=== PATIENT | male | born 1980 | race Two or more races ===

== ENCOUNTER 2017-03-01 21:59 | Emergency (ER) | payer SELFPAY ==
[~2017-03-01] VITALS: Ht 165.1 cm; Wt 54.4 kg
[2017-03-01 22:30] LABS: BASO % 1 % (0-3); EOS % 2 % (0-3); HEMATOCRIT 45.2 % (39.0-53.0); HEMOGLOBIN 15.2 g/dL (13.0-17.5); LYMPH # 2.1 x10^3/uL (1.0-4.8); LYMPH % 30 % (24-48); MEAN CORPUSCULAR HEMOGLOBIN 25 pg (25-35); MEAN CORPUSCULAR HGB CONC 34 g/dL (31-37); MEAN CORPUSCULAR VOLUME 76 fL (79-100); MONO % 9 % (0-9); NEUT % 59 % (31-73); PLATELET COUNT 200 x10^3/uL (140-400); RED BLOOD COUNT 5.97 x10^6/uL (4.30-5.70); RED CELL DISTRIBUTION WIDTH 13.3 % (11.5-14.5); WHITE BLOOD COUNT 6.9 x10^3/uL (4.0-11.0)
[2017-03-01 22:38] LABS: INR 1.1 (0.8-1.1); PROTHROMBIN TIME PATIENT 13.2 SEC (11.7-14.0)
[2017-03-01 22:42] LABS: CALCIUM 9.6 mg/dL (8.5-10.1); CREATININE 0.8 mg/dL (0.7-1.3); POTASSIUM 3.6 mmol/L (3.5-5.1)
[2017-03-01] MEDS ORDERED: fentaNYL PF VIAL 100 MCG/2 ML VIAL IV PRN (22:45)
[2017-03-01] MEDS ORDERED: IV NORMAL SALINE 1000ML BAG 1,000 ML IV SCH (22:45)
[2017-03-01 22:49] LABS: DIRECT BILIRUBIN 0.1 mg/dL (0.0-0.2); MAGNESIUM 1.8 mg/dL (1.8-2.4); TOTAL BILIRUBIN 0.5 mg/dL (0.2-1.0); TOTAL PROTEIN 7.8 g/dL (6.4-8.2)
--- NOTE | 2017-03-01 22:55 | PHYS DOC ---
Past Medical History Past Medical History: Unknown, Other Additional Past Medical Histor: skin bx Alcohol Use: None Drug Use: None Adult General Chief Complaint Chief Complaint: CHEST PAIN HPI HPI Patient is a 36 year old male brought to the ED from work by EMS with the complaint of chest and upper abdominal pain. The patient does not speak Romanian , the account specialist phone was used for the history. 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 He was feeling fine during the day. About 8:30 tonight he began to feel tightness across his chest and pain in his upper abdomen. He felt short of air. He was shaking all over. Coworkers laid him down on the cold floor and called 911. Paramedics report that the patient was laying on a cold floor when they picked him up, he was shaking but they thought maybe he was cold. Patient states he did feel feverish at home earlier today but does not have a thermometer. He denies vomiting or diarrhea. Denies cough. He's never had anything like this before. He's never had any abdominal surgery. The patient has no significant medical problems. He has had a chronic rash, he can't remember the name of it. He had a skin biopsy in 2008 and he has some sort of cream or ointment that he applies. Review of Systems Review of Systems Constitutional: As in history of present illness Eyes: Denies change in visual acuity, redness, or eye pain [] HENT: Denies nasal congestion or sore throat [] Respiratory: As in history of present illness Cardiovascular: As in history of present illness GI: As in history of present illness : Denies dysuria or hematuria [] Musculoskeletal: Denies back pain or joint pain [] Integument: Chronic rash as in history of present illness Neurologic: Denies headache, focal weakness or sensory changes [] Current Medications Current Medications Current Medications Medications (Trade) Dose Ordered Sig/Michael Start Time Stop Time Status Last Admin Dose Admin Fentanyl Citrate (Fentanyl 2ml Vial) 50 mcg PRN Q15MIN PRN 03/01/17 22:45 03/02/17 22:44 03/01/17 22:52 50 MCG Info (Do NOT chart on this entry -- for MONITORING) 1 each PRN DAILY PRN 03/01/17 23:15 03/03/17 23:14 Iohexol (Omnipaque 300 Mg/ml) 75 ml 1X ONCE 03/01/17 23:15 03/01/17 23:16 DC 03/01/17 23:05 75 ML Sodium Chloride 1,000 ml @ 1,000 mls/hr Q1H 03/01/17 22:45 03/01/17 23:44 DC 03/01/17 22:52 1,000 MLS/HR Allergies Allergies Allergies Coded Allergies Type Severity Reaction Last Updated Verified No Known Drug Allergies 03/01/17 No Physical Exam Physical Exam Constitutional: Thin male who appears very uncomfortable, rubbing his upper abdomen, moaning in pain, warm and dry, vitals stable. HENT: Normocephalic, atraumatic, bilateral external ears normal, nose normal. [ ] Eyes: conjunctiva normal, no discharge. [] Neck: Normal range of motion, no stridor. [] Cardiovascular:Heart rate regular rhythm, no murmur [] Lungs & Thorax: Bilateral breath sounds clear to auscultation [] Abdomen: Nondistended. Tender to palpation throughout the entire abdomen, patient pushes my hand away, no rebound or guarding, no masses Skin: Warm, dry, no erythema, appearing pretibial rash also present on the extensor surfaces of the elbows Extremities: No tenderness, no cyanosis, no clubbing, ROM intact, no edema. [] Neurologic: Alert and oriented X 3, normal motor function, normal sensory function, no focal deficits noted. [] Current Patient Data Vital Signs Vital Signs Date Time Temp Pulse Resp B/P (MAP) Pulse Ox O2 Delivery O2 Flow Rate FiO2 03/01/17 22:52 18 98 Nasal Cannula 03/01/17 22:00 98.6 70 144/86 (105) 98.6 Lab Values Laboratory Tests Test 03/01/17 22:06 03/01/17 22:08 Glucose (Fingerstick) 112 mg/dL (70-99) H White Blood Count 6.9 x10^3/uL (4.0-11.0) Red Blood Count 5.97 x10^6/uL (4.30-5.70) H Hemoglobin 15.2 g/dL (13.0-17.5) Hematocrit 45.2 % (39.0-53.0) Mean Corpuscular Volume 76 fL (79-100) L Mean Corpuscular Hemoglobin 25 pg (25-35) Mean Corpuscular Hemoglobin Concent 34 g/dL (31-37) Red Cell Distribution Width 13.3 % (11.5-14.5) Platelet Count 200 x10^3/uL (140-400) Neutrophils (%) (Auto) 59 % (31-73) Lymphocytes (%) (Auto) 30 % (24-48) Monocytes (%) (Auto) 9 % (0-9) Eosinophils (%) (Auto) 2 % (0-3) Basophils (%) (Auto) 1 % (0-3) Neutrophils # (Auto) 4.1 x10^3uL (1.8-7.7) Lymphocytes # (Auto) 2.1 x10^3/uL (1.0-4.8) Monocytes # (Auto) 0.6 x10^3/uL (0.0-1.1) Eosinophils # (Auto) 0.1 x10^3/uL (0.0-0.7) Basophils # (Auto) 0.0 x10^3/uL (0.0-0.2) Prothrombin Time 13.2 SEC (11.7-14.0) Prothrombin Time INR 1.1 (0.8-1.1) Sodium Level 137 mmol/L (136-145) Potassium Level 3.6 mmol/L (3.5-5.1) Chloride Level 101 mmol/L (98-107) Carbon Dioxide Level 27 mmol/L (21-32) Anion Gap 9 (6-14) Blood Urea Nitrogen 16 mg/dL (8-26) Creatinine 0.8 mg/dL (0.7-1.3) Estimated GFR (Cockcroft-Gault) 110.0 Glucose Level 114 mg/dL (70-99) H Calcium Level 9.6 mg/dL (8.5-10.1) Magnesium Level 1.8 mg/dL (1.8-2.4) Total Bilirubin 0.5 mg/dL (0.2-1.0) Direct Bilirubin 0.1 mg/dL (0.0-0.2) Aspartate Amino Transferase (AST) 25 U/L (15-37) Alanine Aminotransferase (ALT) 24 U/L (16-63) Alkaline Phosphatase 56 U/L (46-116) Troponin I Quantitative < 0.017 ng/mL (0.000-0.055) RX-Zps-L-Type Natriuretic Peptide 42 pg/mL (0-124) Total Protein 7.8 g/dL (6.4-8.2) Albumin 4.0 g/dL (3.4-5.0) Lipase 122 U/L (73-393) Laboratory Tests 03/01/17 22:08 Laboratory Tests 03/01/17 22:08 EKG EKG 12-lead EKG read by me. Sinus rhythm. Heart rate 72. There are no acute ST or T wave changes indicative of ischemia or infarction. No STEMI. 2204 [] Radiology/Procedures Radiology/Procedures One view portable upright chest x-ray read by me. Heart size normal. Lung stanley are clear. There is no free air. No acute pulmonary abnormality. No acute findings. [] CT scan of the abdomen and pelvis read by the radiologist. Abdomen: Chest Base: Partially imaged without gross abnormality. Vessels: No abdominal aortic aneurysm. Liver/Biliary: No intrahepatic biliary duct dilation. Pancreas: No peripancreatic edema. Spleen: Normal. Kidneys/Adrenal: 16 mm low-attenuation lesion left kidney. 14 mm low-attenuation lesion right kidney. No hydronephrosis. GI: Appendix measures up to approximately 5 mm without definite adjacent inflammation at this time. There is some enhancement of the mucosa. Pelvis: Bladder: No definite adjacent inflammation. IMPRESSION: 1. No evidence of hydronephrosis or bowel obstruction. No definite periappendiceal inflammation. 2. Couple low-attenuation lesions of the kidneys. Most common cause would be cyst but ultrasound could better evaluate to ensure that there is no complex component. Course & Med Decision Making Course & Med Decision Making Pertinent Labs and Imaging studies reviewed. (See chart for details) 36-year-old male without chronic medical problems brought by EMS from work with a fairly acute onset of upper abdomen/chest pain which appears to be significant pain. There is a language barrier, the account specialist line was used. On evaluation, the patient's abdomen is very tender. I don't believe the patient 's complaint is actually chest pain but more upper abdominal pain. We will start with some lab tests and a chest x-ray and give the patient something for pain. EKG, upright chest x-ray unrevealing. Labs unremarkable. I ordered a CT scan of his abdomen and pelvis. Unrevealing except for some enhancement of appendiceal mucosa. I don't believe the patient has appendicitis. His clinical picture is not consistent, his exam is not consistent with appendicitis. However, his pain has not improved and I do believe he should be reevaluated in the morning. Patient's family members arrived and helped translate at the bedside. Patient continued to complain of pain, moaning, rubbing his abdomen. I reassured them that multiple tests have not showed anything serious and we will try a dose of magnesium citrate tonight and reevaluate in the morning. They're agreeable to that plan. I discussed the case with Dr. Houston, [facility]. She will admit the patient. I wrote bridge orders. [] Dragon Disclaimer Dragon Disclaimer This electronic medical record was generated, in whole or in part, using a voice recognition dictation system. Departure Departure Impression: Primary Impression: Abdominal pain of unknown etiology Disposition: ADMITTED INPATIENT Admitting Physician: Yasmin Houston Condition: STABLE Referrals: NO PCP (PCP) JAZMINE PARRISH MD Mar 01, 2017 22:55
[2017-03-01 23:00] VITALS: BP 142/83
[2017-03-01] MEDS ORDERED: CONTRAST GIVEN MC PRN (23:15)
[2017-03-01] MEDS ORDERED: IOHEXOL 300 MG/ML 75 ML VIAL IV ONE (23:15)
--- NOTE | 2017-03-01 23:27 | RAD ---
INDICATION: sudden onset severe upper abd pain, [id number] 75ml, no priors COMPARISON: None. TECHNIQUE: Axial CT images were obtained through the abdomen and pelvis with intravenous contrast. One or more of the following individualized dose reduction techniques were utilized for this examination: 1. Automated exposure control; 2. Adjustment of the mA and/or kV according to patient size; 3. Use of iterative reconstruction technique. FINDINGS: Abdomen: Chest Base: Partially imaged without gross abnormality. Vessels: No abdominal aortic aneurysm. Liver/Biliary: No intrahepatic biliary duct dilation. Pancreas: No peripancreatic edema. Spleen: Normal. Kidneys/Adrenal: 16 mm low-attenuation lesion left kidney. 14 mm low-attenuation lesion right kidney. No hydronephrosis. GI: Appendix measures up to approximately 5 mm without definite adjacent inflammation at this time. There is some enhancement of the mucosa. Pelvis: Bladder: No definite adjacent inflammation. IMPRESSION: 1. No evidence of hydronephrosis or bowel obstruction. No definite periappendiceal inflammation. 2. Couple low-attenuation lesions of the kidneys. Most common cause would be cyst but ultrasound could better evaluate to ensure that there is no complex component. Electronically signed by: Pavel Canales MD (03/01/2017 11:24 PM) [id number]
[2017-03-02] MEDS ORDERED: fentaNYL PF VIAL 100 MCG/2 ML VIAL IV PRN
[2017-03-02] MEDS ORDERED: ONDANSETRON PF 4 MG/2 ML VIAL. IV PRN
[2017-03-02] MEDS ORDERED: IV NORMAL SALINE 1000ML BAG 1,000 ML IV SCH
[2017-03-02] MEDS ORDERED: MAGNESIUM CITRATE 296 ML SOLUTION. PO ONE
[2017-03-02 00:25] LABS: BILIRUBIN,URINE NEGATIVE (NEG); GLUCOSE,URINE NEGATIVE (NEG); NITRITE,URINE NEGATIVE (NEG); PH,URINE 7.5; PROTEIN,URINE NEGATIVE (NEG-TRACE); UROBILINOGEN,URINE 0.2 mg/dL (0.2 mg/dL)
[2017-03-02 00:36] LABS: BACTERIA,URINE 0 /HPF (0-FEW); RBC,URINE 0 /HPF (0-2); SQUAMOUS EPITHELIAL CELL,UR OCC /LPF; WBC,URINE 0 /HPF (0-4)
--- NOTE | 2017-03-02 06:49 | EKG ---
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
--- NOTE | 2017-03-02 07:37 | RAD ---
Indication epigastric pain. A single view of the chest was obtained. No prior imaging is available. The heart, pulmonary vessels and mediastinum appear normal. The lungs are clear. There is no pleural fluid or pneumothorax. The bony structures appear grossly intact. IMPRESSION: No acute or focal process is seen in the chest
== END 2017-03-02 00:30 | disposition left against medical advice (07) ==
LOC: ER 21:59
DX: R10.10 Upper abdominal pain, unspecified (principal); R07.89 Other chest pain; R06.02 Shortness of breath; R50.9 Fever, unspecified; R21 Rash and other nonspecific skin eruption; R10.84 Generalized abdominal pain
CPT/HCPCS: 36415; 71010; 74177; 80048; 80076; 81001; 82962; 83690; 83735; 83880; 84484; 85027; 85610; 93005; 96361; 96374; 96375; 99285; J2405; J3010; J7030; Q9967